=== PATIENT | female | born 1975 | race Caucasian/White ===

== ENCOUNTER 2017-02-28 09:54 | Inpatient (IN) | payer OTHER ==
[2017-02-28 10:34] VITALS: BMI 28.3
--- NOTE | 2017-02-28 12:20 | HP ---
COWS - Scale Resting Pulse: 0= [place] 80 or Below Sweatin=Flushed/Facial Moisture Restless Observation: 1= Difficult to Sit Still Pupil Size: 2= Moderately Dilated Bone or Joint Aches: 2= Severe Diffuse Aches Runny Nose/ Eye Tearin= Runny Nose/Eyes GI Upset > 30mins: 2= Nausea/Diarrhea Tremor Observation: 2= Slight Tremor Visible Yawning Observation: 1= 1-2x During Session Anxiety or Irritability: 2=Irritable/Anxious Goose Flesh Skin: 0=Smooth Skin COWS Score: 16 Admission ROS S - HPI Chief Complaint: Withdrawal sx. Allergies/Adverse Reactions: Allergies Allergy/AdvReac Type Severity Reaction Status Date / Time No Known Allergies Allergy Verified 02/28/17 10:55 History of Present Illness: 41 y/o woman with a long hx. of drug dependence is admitted for detox.Pt. denies previous detox. Exam Limitations: No Limitations - Ebola screening Have you traveled outside of the country in the last 21 days: No Have you had contact with anyone from an Ebola affected area: No Have you been sick,other than usual withdrawal symptoms: No - Review of Systems Constitutional: Diaphoresis EENT: reports: Nose Congestion Respiratory: reports: No Symptoms reported Cardiac: reports: No Symptoms Reported GI: reports: Diarrhea, Nausea, Abdominal cramping : reports: No Symptoms Reported Musculoskeletal: reports: Back Pain Integumentary: reports: Sweating Neuro: reports: Tremors Endocrine: reports: No Symptoms Reported Hematology: reports: No Symptoms Reported Psychiatric: reports: No Sypmtoms Reported Other Systems: Reviewed and Negative Patient History - Patient Medical History Hx Anemia: No Hx Asthma: No Hx Chronic Obstructive Pulmonary Disease (COPD): No Hx Cardiac Disorders: No Hx Hypertension: No Hx Hypercholesterolemia: No Hx Pacemaker: No HX Cerebrovascular Accident: No Hx Seizures: No Hx Diabetes: No Hx Gastrointestinal Disorders: No Hx Liver Disease: No Hx Genitourinary Disorders: No Hx Sexually Transmitted Disorders: No Hx Renal Disease (ESRD): No Hx Thyroid Disease: No Hx Human Immunodeficiency Virus (HIV): No Hx Hepatitis C: No Hx Depression: Yes (& anxiety,prescribed Abilify(non-compliant)) Hx Suicide Attempt: No Hx Bipolar Disorder: No Hx Schizophrenia: No - Patient Surgical History Past Surgical History: No Hx Neurologic Surgery: No Hx Cataract Extraction: No Hx Cardiac Surgery: No Hx Lung Surgery: No Hx Breast Surgery: No Hx Breast Biopsy: No Hx Abdominal Surgery: No Hx Appendectomy: No Hx Cholecystectomy: No Hx Genitourinary Surgery: No Hx Section: No Hx Orthopedic Surgery: No Anesthesia Reaction: No - PPD History Previous Implant?: Yes Documented Results: Negative w/o proof Implanted On Prior [facility] Admission?: No PPD to be Administered?: Yes - Reproductive History Last Menstrual Period: 02/21/17 Patient : No - Smoking Cessation Smoking history: Current every day smoker Have you smoked in the past 12 months: Yes Aproximately how many cigarettes per day: 20 Hx Chewing Tobacco Use: No Initiated information on smoking cessation: Yes 'Breaking Loose' booklet given: 02/28/17 - Substance & Tx. History Hx Alcohol Use: No Hx Substance Use: Yes Substance Use Type: Cocaine, Heroin, Marijuana Hx Substance Use Treatment: No - Substances Abused Heroin Route: Inhalation Frequency: Daily Amount used: 8-9 bags Age of first use: 37 Date of Last Use: 02/27/17 Crack Route: Smoking Frequency: Daily Amount used: $300 Age of first use: 13 Date of Last Use: 02/27/17 Marijuana Route: Smoking Frequency: Daily Amount used: $10 Age of first use: 13 Date of Last Use: 02/27/17 Family Disease History - Family Disease History Family Disease History: CA: Mother (Colon) Admission Physical Exam [facility] - Vital Signs Vital Signs: Vital Signs - 24 hr 02/28/17 10:32 Temperature 96.9 F L Pulse Rate 67 Respiratory 20 Rate Blood Pressure 113/77 - Physical General Appearance: Yes: Tremorous, Irritable, Sweating, Anxious HEENTM: Yes: Nasal Congestion, Rhinorrhea Respiratory: Yes: Chest Non-Tender, Lungs Clear, Normal Breath Sounds Neck: Yes: Supple Breast: Yes: Breast Exam Deferred Cardiology: Yes: Regular Rhythm, Regular Rate, S1, S2 Abdominal: Yes: Normal Bowel Sounds, Non Tender, Soft Genitourinary: Yes: Within Normal Limits Back: Yes: Within Normal Limits Musculoskeletal: Yes: Within Normal Limits Extremities: Yes: Tremors Neurological: Yes: Fully Oriented, Alert Integumentary: Yes: Diaphoresis Lymphatic: Yes: Within Normal Limits - Diagnostic (1) Opioid dependence with withdrawal Current Visit: Yes Status: Acute (2) Cocaine dependence, uncomplicated Current Visit: Yes Status: Acute (3) Cannabis dependence, uncomplicated Current Visit: Yes Status: Acute Cleared for Admission [facility] - Detox or Rehab [facility] Level of Care: Medically Managed Detox Regimen/Protocol: Methadone [facility] Breath Alcohol Content Breath Alcohol Content: 0 Urine Pregancy Test - Result Urine Test Results: Negative- NO Line Present Urine Drug Screen - Results Drug Screen Negative: No Urine Drug Screen Results: THC-Marijuana, MARLEN-Cocaine, OPI-Opiates
[2017-02-28] MEDS ORDERED: diphenhydrAMINE HCL 50 MG CAPSULE PO PRN (12:29)
[2017-02-28] MEDS ORDERED: MAGNESIUM CITRATE 300 ML BOTTLE PO PRN (12:29)
[2017-02-28] MEDS ORDERED: MAG HYDROX/AL HYDROX/SIMETH 30 ML UNIT-DOSE CUP PO PRN (12:29)
[2017-02-28] MEDS ORDERED: guaiFENesin/D-METHORPHAN HB 10 ML UNIT-DOSE CUPS PO PRN (12:29)
[2017-02-28] MEDS ORDERED: P-EPHED 60MG/TRIPROLIDI 2.5MG TABLET PO PRN (12:29)
[2017-02-28] MEDS ORDERED: LOPERAMIDE HCL 2 MG CAPSULE PO PRN (12:29)
[2017-02-28] MEDS ORDERED: ACETAMINOPHEN 325 MG TABLET (FP) PO PRN (12:29)
[2017-02-28] MEDS ORDERED: MAGNESIUM HYDROX 2400MG/30ML ORAL SUSPENSION 30 ML CUP PO PRN (12:29)
[2017-02-28] MEDS ORDERED: METHADONE HCL 10 MG TABLET (FOR DETOX USE ONLY) PO ONE ×2 (12:56→23:00)
[2017-02-28] MEDS: NICOTINE 21 MG/24 HOURS TOPICAL PATCH TD SCH (13:18)
[2017-02-28] MEDS: diazePAM 5 MG TABLET PO PRN ×2 (13:18→23:01)
--- NOTE | 2017-02-28 15:05 | EKG ---
Test Reason : Blood Pressure : / mmHG Vent. Rate : 065 BPM Atrial Rate : 065 BPM P-R Int : 146 ms QRS Dur : 096 ms QT Int : 442 ms P-R-T Axes : 032 066 055 degrees QTc Int : 459 ms NORMAL SINUS RHYTHM NORMAL ECG NO PREVIOUS ECGS AVAILABLE Confirmed by CHEMO AVILA MD ([id number]) on 02/28/2017 3:05:28 PM Referred By: Confirmed By:CHEMO AVILA MD
[2017-02-28 15:30] LABS: HIV 1 & 2 AB NEGATIVE; HIV 1 AGp24 NEGATIVE
[2017-02-28 18:54] LABS: URINE APPEARANCE CLOUDY; URINE BILIRUBIN NEGATIVE (NEGATIVE); URINE BLOOD NEGATIVE (NEGATIVE); URINE COLOR DKYELLOW; URINE GLUCOSE (UA) NEGATIVE (NEGATIVE); URINE KETONE NEGATIVE (NEGATIVE); URINE NITRITE NEGATIVE (NEGATIVE); URINE UROBILINOGEN 2.0 E.U/dl E.U./dl (0.2-1.0)
[2017-02-28 19:05] LABS: URINE LEUK ESTERASE TRACE (NEGATIVE); URINE PROTEIN 1+ (NEGATIVE)
[2017-02-28 19:14] LABS: URINE BACTERIA RARE /hpf (NONE SEEN); URINE MUCUS MANY; URINE RBC 19 /hpf (0-3); URINE WBC 20 /hpf (3-5)
[2017-02-28] MEDS: THIAMINE HCL 100 MG TABLET (FP) PO SCH (23:02)
--- NOTE | 2017-03-01 09:51 | CONSULT ---
[facility] Psychiatric Consult - Data Date of interview: 03/01/17 Admission source: [facility] Identifying data: This is 41 years old female with psychiatiorc hospitalization history intoxicated with: Opioids, Cocaine and Cannabis Substance Abuse History: - Smoking Cessation. Smoking history: Current every day smoker. Have you smoked in the past 12 months: Yes. Aproximately how many cigarettes per day: 20. Hx Chewing Tobacco Use: No. Initiated information on smoking cessation: Yes. 'Breaking Loose' booklet given: 02/28/17. - Substance & Tx. History. Hx Alcohol Use: No. Hx Substance Use: Yes. Substance Use Type : Cocaine, Heroin, Marijuana. Hx Substance Use Treatment: No. - Substances Abused. Heroin. Route: Inhalation. Frequency: Daily. Amount used: 8-9 bags. Age of first use: 37. Date of Last Use: 02/27/17. Crack. Route: Smoking. Frequency: Daily. Amount used: $300. Age of first use: 13. Date of Last Use: 02/27/17. Marijuana. Route: Smoking. Frequency: Daily. Amount used: $10. Age of first use: 13. Date of Last Use: 02/27/17 Medical History: Denies significant medical problem Psychiatric History: Patient reports historyof anxiety and insomnia, reports unclear past psychiatric hospitalization history, reports taking priorto admission: 'Ambien 10mg po qhs. [id number] po prn q4 for anxiety and agitation Physical/Sexual Abuse/Trauma History: Denies Additional Comment: 'Ambien 10mg po qhs. [id number] po prn q4 for anxiety and agitation Mental Status Exam - Mental Status Exam Alert and Oriented to: Person Cognitive Function: Fair Patient Appearance: Unkempt Mood: Sad Affect: Flat Patient Behavior: Sedated, Talkative Speech Pattern: Delayed Voice Loudness: Normal Thought Process: Circumstantial Thought Disorder: Being Controlled Hallucinations: Denies Suicidal Ideation: Denies Homicidal Ideation: Denies Insight/Judgement: Fair Sleep: Difficulty falling asleep Appetite: Fair Muscle strength/Tone: Mild Hypotonicity Gait/Station: Shuffling Additional Comments: 'Ambien 10mg po qhs. [id number] po prn q4 for anxiety and agitation Psychiatric Findings - Problem List ([place] 1, 2,3) (1) Cannabis dependence, uncomplicated Current Visit: Yes Status: Acute (2) Cocaine dependence, uncomplicated Current Visit: Yes Status: Acute (3) Opioid dependence with withdrawal Current Visit: Yes Status: Acute (4) Drug-induced mood disorder Current Visit: Yes Status: Acute - Initial Treatment Plan Initial Treatment Plan: 'Ambien 10mg po qhs. [id number] po prn q4 for anxiety and agitation
[2017-03-01] MEDS ORDERED: METHADONE HCL 10 MG TABLET (FOR DETOX USE ONLY) PO ONE (10:00)
[2017-03-01 10:15] LABS: MCH 30.6 pg (25.7-33.7); MCHC 33.2 g/dl (32.0-36.0); MEAN CELL VOLUME 92.3 fl (80-96); MEAN PLT VOLUME 10.1 fl (7.5-11.1); PLATELET COUNT 291 K/MM3 (134-434); RDW 13.6 % (11.6-15.6); WHITE BLOOD COUNT 7.4 K/mm3 (4.0-10.0)
[2017-03-01 10:49] LABS: ALBUMIN 3.7 g/dl (3.4-5.0); ALK PHOS 82 U/L (45-117); ANION GAP 13 (8-16); BILIRUBIN,TOTAL 0.3 mg/dL (0.2-1.0); CALCIUM 8.7 mg/dL (8.5-10.1); CO2 25 mmol/L (21-32); COCKROFT - GAULT 108.2305; CREATININE 0.8 mg/dL (0.55-1.02); GLUCOSE,RANDOM 130 mg/dL (74-106); SGOT/AST 19 U/L (15-37); SGPT/ALT 24 U/L (12-78); TOT PROT 6.9 g/dl (6.4-8.2)
[2017-03-01] MEDS: PRENATAL VITAMINS W/ FOLIC ACID TABLET (FP) PO SCH (10:56)
[2017-03-01] MEDS: NICOTINE 21 MG/24 HOURS TOPICAL PATCH TD SCH (10:56)
[2017-03-01] MEDS: diazePAM 5 MG TABLET PO PRN ×2 (10:57→22:29)
[2017-03-01 11:25] LABS: SICKLE CELL SCREEN NEGATIVE (NEGATIVE)
[2017-03-01] MEDS ORDERED: cloNIDine HCL 0.1 MG TABLET PO ONE (11:31)
--- NOTE | 2017-03-01 11:35 | PN ---
S COWS - Scale Resting Pulse: 0= [place] 80 or Below Sweatin=Flushed/Facial Moisture Restless Observation: 1= Difficult to Sit Still Pupil Size: 0= Normal to Room Light Bone or Joint Aches: 2= Severe Diffuse Aches Runny Nose/ Eye Tearin= Runny Nose/Eyes GI Upset > 30mins: 2= Nausea/Diarrhea Tremor Observation of Outstretched Hands: 2= Slight Tremor Visible Yawning Observation: 2= >3x During Session Anxiety or Irritability: 2=Irritable/Anxious Goose Flesh Skin: 3=Piloerection COWS Score: 18 S Progress Note (SOAP) Subjective: body aches sweats hot/cold chills restless irritable Objective: 03/01/17 11:34 Vital Signs Temperature 97.3 F L 03/01/17 06:00 Pulse Rate 61 03/01/17 06:00 Respiratory Rate 18 03/01/17 06:00 Blood Pressure 119/82 03/01/17 06:00 O2 Sat by Pulse Oximetry (%) Laboratory Tests 02/28/17 02/28/17 03/01/17 11:00 15:00 06:00 WBC 7.4 RBC 4.76 Hgb 14.6 Hct 43.9 MCV 92.3 MCHC 33.2 RDW 13.6 Plt Count 291 MPV 10.1 Sickle Cell Screen Negative Sodium Potassium Chloride Carbon Dioxide Anion Gap BUN Creatinine Creat Clearance w eGFR Random Glucose Calcium Total Bilirubin AST ALT Alkaline Phosphatase Total Protein Albumin Urine Color Dkyellow Urine Appearance Cloudy Urine pH 6.0 Ur Specific [place] 1.025 Urine Protein 1+ H Urine Glucose (UA) Negative Urine Ketones Negative Urine Blood Negative Urine Nitrite Negative Urine Bilirubin Negative Urine Urobilinogen 2.0 e.u/dl H Ur Leukocyte Esterase Trace H Urine RBC 19 Urine WBC 20 Ur Epithelial Cells Rare Urine Bacteria Rare Urine Mucus Many HIV 1&2 Antibody Screen Negative HIV P24 Antigen Negative 03/01/17 06:00 WBC RBC Hgb Hct MCV MCHC RDW Plt Count MPV Sickle Cell Screen Sodium 143 Potassium 3.6 Chloride 105 Carbon Dioxide 25 Anion Gap 13 BUN 8 Creatinine 0.8 Creat Clearance w eGFR > 60 Random Glucose 130 H Calcium 8.7 Total Bilirubin 0.3 AST 19 ALT 24 Alkaline Phosphatase 82 Total Protein 6.9 Albumin 3.7 Urine Color Urine Appearance Urine pH Ur Specific [place] Urine Protein Urine Glucose (UA) Urine Ketones Urine Blood Urine Nitrite Urine Bilirubin Urine Urobilinogen Ur Leukocyte Esterase Urine RBC Urine WBC Ur Epithelial Cells Urine Bacteria Urine Mucus HIV 1&2 Antibody Screen HIV P24 Antigen repeat u/a awake/alert ambulating no acute distress Assessment: 03/01/17 11:34 withdrawal sx Plan: continue detox increase fluids clonidine 0.1mg x one
[2017-03-01] MEDS: NICOTINE POLACRILEX 2 MG GUM BUC PRN (16:53)
[2017-03-01] MEDS: ZOLPIDEM TARTRATE 10 MG TABLET (PARK CARE ONLY) PO PRN (22:29)
[2017-03-01] MEDS: THIAMINE HCL 100 MG TABLET (FP) PO SCH (22:29)
[2017-03-02] MEDS ORDERED: METHADONE HCL 5 MG TABLET (FOR DETOX USE ONLY) PO ONE (10:00)
[2017-03-02] MEDS: PRENATAL VITAMINS W/ FOLIC ACID TABLET (FP) PO SCH (10:48)
[2017-03-02] MEDS: diazePAM 5 MG TABLET PO PRN ×2 (10:48→22:55)
[2017-03-02] MEDS: NICOTINE 21 MG/24 HOURS TOPICAL PATCH TD SCH (10:49)
--- NOTE | 2017-03-02 11:28 | PN ---
S COWS - Scale Resting Pulse: 0= [place] 80 or Below Sweatin=Flushed/Facial Moisture Restless Observation: 1= Difficult to Sit Still Pupil Size: 0= Normal to Room Light Bone or Joint Aches: 2= Severe Diffuse Aches Runny Nose/ Eye Tearin= Nasal Congestion GI Upset > 30mins: 0= None Tremor Observation of Outstretched Hands: 2= Slight Tremor Visible Yawning Observation: 1= 1-2x During Session Anxiety or Irritability: 2=Irritable/Anxious Goose Flesh Skin: 3=Piloerection COWS Score: 14 S Progress Note (SOAP) Subjective: body aches shakes sweats hot/cold interrupted sleep Objective: 03/02/17 11:24 Vital Signs Temperature 98.2 F 03/02/17 10:40 Pulse Rate 61 03/02/17 10:40 Respiratory Rate 16 03/02/17 10:40 Blood Pressure 124/79 03/02/17 10:40 O2 Sat by Pulse Oximetry (%) Laboratory Tests 02/28/17 02/28/17 03/01/17 11:00 15:00 06:00 WBC 7.4 RBC 4.76 Hgb 14.6 Hct 43.9 MCV 92.3 MCHC 33.2 RDW 13.6 Plt Count 291 MPV 10.1 Sickle Cell Screen Negative Sodium Potassium Chloride Carbon Dioxide Anion Gap BUN Creatinine Creat Clearance w eGFR Random Glucose Calcium Total Bilirubin AST ALT Alkaline Phosphatase Total Protein Albumin Urine Color Dkyellow Urine Appearance Cloudy Urine pH 6.0 Ur Specific [place] 1.025 Urine Protein 1+ H Urine Glucose (UA) Negative Urine Ketones Negative Urine Blood Negative Urine Nitrite Negative Urine Bilirubin Negative Urine Urobilinogen 2.0 e.u/dl H Ur Leukocyte Esterase Trace H Urine RBC 19 Urine WBC 20 Ur Epithelial Cells Rare Urine Bacteria Rare Urine Mucus Many RPR Titer HIV 1&2 Antibody Screen Negative HIV P24 Antigen Negative 03/01/17 03/01/17 06:00 06:00 WBC RBC Hgb Hct MCV MCHC RDW Plt Count MPV Sickle Cell Screen Sodium 143 Potassium 3.6 Chloride 105 Carbon Dioxide 25 Anion Gap 13 BUN 8 Creatinine 0.8 Creat Clearance w eGFR > 60 Random Glucose 130 H Calcium 8.7 Total Bilirubin 0.3 AST 19 ALT 24 Alkaline Phosphatase 82 Total Protein 6.9 Albumin 3.7 Urine Color Urine Appearance Urine pH Ur Specific [place] Urine Protein Urine Glucose (UA) Urine Ketones Urine Blood Urine Nitrite Urine Bilirubin Urine Urobilinogen Ur Leukocyte Esterase Urine RBC Urine WBC Ur Epithelial Cells Urine Bacteria Urine Mucus RPR Titer Nonreactive HIV 1&2 Antibody Screen HIV P24 Antigen awake/alert ambulating no acute distress Assessment: 03/02/17 11:25 withdrawal sx Plan: continue detox increase fluids psych reordered for medication she takes
[2017-03-02] MEDS ORDERED: QUEtiapine FUMARATE 100 MG TABLET (FP) PO STA (11:30)
[2017-03-02] MEDS: QUEtiapine FUMARATE 100 MG TABLET (FP) PO SCH ×2 (12:05→22:54)
[2017-03-02] MEDS: NICOTINE POLACRILEX 2 MG GUM BUC PRN ×2 (12:05→23:01)
[2017-03-02] MEDS: ZOLPIDEM TARTRATE 10 MG TABLET (PARK CARE ONLY) PO PRN (22:53)
[2017-03-02] MEDS: MIRTAZAPINE 30 MG TABLET (FP) PO SCH (22:53)
[2017-03-02] MEDS: THIAMINE HCL 100 MG TABLET (FP) PO SCH (22:54)
[2017-03-03] MEDS ORDERED: METHADONE HCL 5 MG TABLET (FOR DETOX USE ONLY) PO ONE (10:00)
[2017-03-03] MEDS: PRENATAL VITAMINS W/ FOLIC ACID TABLET (FP) PO SCH (10:42)
[2017-03-03] MEDS: QUEtiapine FUMARATE 100 MG TABLET (FP) PO SCH ×2 (10:42→22:52)
[2017-03-03] MEDS: NICOTINE 21 MG/24 HOURS TOPICAL PATCH TD SCH (10:43)
--- NOTE | 2017-03-03 11:02 | PN ---
[facility] Progress Note (SOAP) Subjective: chills hot/cold sweats interrupted sleep body aches Objective: 03/03/17 11:01 Vital Signs Temperature 96.8 F L 03/03/17 06:00 Pulse Rate 56 L 03/03/17 06:00 Respiratory Rate 18 03/03/17 06:00 Blood Pressure 112/55 03/03/17 06:00 O2 Sat by Pulse Oximetry (%) awake/alert ambulating no acute distress Assessment: 03/03/17 11:02 withdrawal sx Plan: continue detox increase fluids
[2017-03-03] MEDS: IBUPROFEN 400 MG TABLET (FP) PO PRN ×2 (13:05→19:01)
[2017-03-03] MEDS: NICOTINE POLACRILEX 2 MG GUM BUC PRN (13:07)
[2017-03-03] MEDS: MENTHOL/PHENOL 1 EACH UD MM PRN ×2 (19:02→22:53)
[2017-03-03] MEDS: hydrOXYzine PAMOATE 50 MG CAPSULE (FP) PO PRN (19:03)
[2017-03-03] MEDS: ZOLPIDEM TARTRATE 10 MG TABLET (PARK CARE ONLY) PO PRN (22:51)
[2017-03-03] MEDS: THIAMINE HCL 100 MG TABLET (FP) PO SCH (22:52)
[2017-03-03] MEDS: MIRTAZAPINE 30 MG TABLET (FP) PO SCH (22:52)
[2017-03-04] MEDS ORDERED: METHADONE HCL 10 MG TABLET (FOR DETOX USE ONLY) PO ONE (10:00)
[2017-03-04] MEDS: PRENATAL VITAMINS W/ FOLIC ACID TABLET (FP) PO SCH (11:34)
[2017-03-04] MEDS: hydrOXYzine PAMOATE 50 MG CAPSULE (FP) PO PRN ×2 (11:34→18:47)
[2017-03-04] MEDS: QUEtiapine FUMARATE 100 MG TABLET (FP) PO SCH ×2 (11:34→22:33)
[2017-03-04] MEDS: NICOTINE POLACRILEX 2 MG GUM BUC PRN ×3 (11:35→22:37)
[2017-03-04] MEDS: NICOTINE 21 MG/24 HOURS TOPICAL PATCH TD SCH (11:35)
--- NOTE | 2017-03-04 15:55 | PN ---
S Progress Note (SOAP) Subjective: ALERT,IRRITABLE,ANXIOUS,INTERRUPTED SLEEP Objective: 03/04/17 15:54 Vital Signs Temperature 97.9 F 03/04/17 14:46 Pulse Rate 88 03/04/17 14:46 Respiratory Rate 16 03/04/17 14:46 Blood Pressure 112/66 03/04/17 14:46 O2 Sat by Pulse Oximetry (%) Assessment: 03/04/17 15:54 WITHDRAWAL SYMPTOM Plan: CONTINUE DETOX,DISCHARGE IN AM
[2017-03-04] MEDS: IBUPROFEN 400 MG TABLET (FP) PO PRN (18:47)
[2017-03-04] MEDS: MIRTAZAPINE 30 MG TABLET (FP) PO SCH (22:33)
[2017-03-04] MEDS: THIAMINE HCL 100 MG TABLET (FP) PO SCH (22:34)
[2017-03-04] MEDS: ZOLPIDEM TARTRATE 10 MG TABLET (PARK CARE ONLY) PO PRN (22:37)
[2017-03-04] MEDS: MENTHOL/PHENOL 1 EACH UD MM PRN (22:37)
[2017-03-05] MEDS ORDERED: METHADONE HCL 5 MG TABLET (FOR DETOX USE ONLY) PO ONE (06:00)
[2017-03-05] MEDS: IBUPROFEN 400 MG TABLET (FP) PO PRN (06:18)
[2017-03-05] MEDS: hydrOXYzine PAMOATE 50 MG CAPSULE (FP) PO PRN (06:18)
[2017-03-05] MEDS: NICOTINE POLACRILEX 2 MG GUM BUC PRN (06:18)
[2017-03-05 07:17] VITALS: BP 95/48; PULSE 57; TEMP 97.6
--- NOTE | 2017-03-05 09:07 | PN ---
S Progress Note (SOAP) Subjective: ALERT,NO COMPLAINT Objective: 03/05/17 09:06 Vital Signs Temperature 97.6 F 03/05/17 07:16 Pulse Rate 57 L 03/05/17 07:16 Respiratory Rate 16 03/05/17 07:16 Blood Pressure 95/48 03/05/17 07:16 O2 Sat by Pulse Oximetry (%) Assessment: 03/05/17 09:06 DETOX COMPLETED,NO WITHDRAWAL SYMPTOM Plan: DISCHARGE TODAY,FOLLOW UP WITH AFTER CARE PROGRAM ARRANGEMENT
--- NOTE | 2017-03-05 09:09 | DS ---
[facility] Detox Discharge Summary Admission Date: 02/28/17 Discharge Date: 03/05/17 - History Present History: Cannabis Dependence, Cocaine Dependence, Opioid Dependence Additional Comments: FOLLOW UP WITH AFTER CARE PROGRAM ARRANGEMENT - Physical Exam Results Vital Signs: Vital Signs Temperature 97.6 F 03/05/17 07:16 Pulse Rate 57 L 03/05/17 07:16 Respiratory Rate 16 03/05/17 07:16 Blood Pressure 95/48 03/05/17 07:16 O2 Sat by Pulse Oximetry (%) Pertinent Admission Physical Exam Findings: WITHDRAWAL SYMPTOM - Treatment Hospital Course: Detox Protocol Followed, Detoxed Safely, Responded well, Discharged Condition Good Patient has Accepted a Rehab Referral to: DECL[facility]ED - Medication Discharge Medications: Ambulatory Orders Mirtazapine [Remeron -] 30 mg PO HS #30 tablet 03/02/17 Quetiapine Fumarate [Seroquel] 100 mg PO BID #60 tablet 03/02/17 Quetiapine Fumarate [Seroquel] 100 mg PO BID #60 tablet 03/02/17 - Diagnosis (1) Cannabis dependence, uncomplicated Current Visit: Yes Status: Acute (2) Cocaine dependence, uncomplicated Current Visit: Yes Status: Acute (3) Drug-induced mood disorder Current Visit: Yes Status: Acute (4) Opioid dependence with withdrawal Current Visit: Yes Status: Acute - AMA Did Patient Leave Against Medical Advice: No
[2017-03-05] MEDS: QUEtiapine FUMARATE 100 MG TABLET (FP) PO SCH (09:34)
[2017-03-05] MEDS: PRENATAL VITAMINS W/ FOLIC ACID TABLET (FP) PO SCH (09:34)
[2017-03-05] MEDS: NICOTINE 21 MG/24 HOURS TOPICAL PATCH TD SCH (09:34)
== END 2017-03-05 10:12 | disposition home or self-care (01) | DRG 773 ==
LOC: YASAS 09:54 → Y6N 12:49
PROVIDERS: ADMIT Internal Medicine Addiction Medicine; ATTEND Internal Medicine Addiction Medicine
PROC: HZ2ZZZZ Detoxification Services for Substance Abuse Treatment (ICD-10-PCS; principal; 2017-03-05)
DX: F11.23 Opioid dependence with withdrawal (principal); F14.20 Cocaine dependence, uncomplicated; F12.20 Cannabis dependence, uncomplicated; F17.210 Nicotine dependence, cigarettes, uncomplicated; F32.9 Major depressive disorder, single episode, unspecified; F41.9 Anxiety disorder, unspecified; F19.24 Other psychoactive substance dependence with psychoactive substance-induced mood disorder
CPT/HCPCS: 36415; 80053; 81003; 81015; 85027; 85660; 86593; 87389; 93005; 93010

== ENCOUNTER 2019-12-02 13:21 | Inpatient (IN) | payer OTHER ==
--- NOTE | 2019-12-02 14:48 | HP ---
COWS - Scale Resting Pulse: 0= [place] 80 or Below Sweatin= Chills/Flushing Restless Observation: 1= Difficult to Sit Still Pupil Size: 0= Normal to Room Light Bone or Joint Aches: 2= Severe Diffuse Aches Runny Nose/ Eye Tearin= Runny Nose/Eyes GI Upset > 30mins: 2= Nausea/Diarrhea Tremor Observation: 1= Tremor [place], Not Seen Yawning Observation: 0= None Anxiety or Irritability: 2=Irritable/Anxious Goose Flesh Skin: 0=Smooth Skin COWS Score: 11 CIWA Score - Admission Criteria [facility] Guidelines: Admission for Medically Managed Detox: Requires at least one of the followin. CIWA greater than 12 2. Seizures within the past 24 hours 3. Delirium tremens within the past 24 hours 4. Hallucinations within the past 24 hours 5. Acute intervention needed for co occurring medical disorder 6. Acute intervention needed for co occurring psychiatric disorder 7. Severe withdrawal that cannot be handled at a lower level of care (continued vomiting, continued diarrhea, abnormal vital signs) requiring intravenous medication and/or fluids 8. Admitting History and Physical - Admission Chief Complaint: Ms. Ayala presents to [facility] requesting admission to detox from Fentanyl and Heroin. History of Present Illness: Ms. Ayala presents to [facility] requesting admission to detox from Fentanyl and Heroin. She is a 44 yo woman with 2 prior admissions to this facility, the last was in 2018. PMH: none Psych: anxiety/depression, on Klonopin (street), was on Ambien Substance use History Heroin: first use at age 39 y, last use: this am, quantity: 1.5 bundles per day. IV. 3 ODs, last OD ~ 5 mos ago, tx in [facility] Cocaine: first use at age 11 y, last use 3 days ago, one bag daily Marijuana: first use at age 11 y, last use 4 days ago, 10 blunts per day Benzodiazepines: first use at age 42 y, last use yesterday, $40. per day. Klonopin Nicotine: 1.5 ppd Denies: no alcohol, no methadone History Source: Patient Limitations to Obtaining History: No Limitations - Past Medical History ...LMP: 02/21/17 Psych: Yes: Anxiety, Depression - Past Surgical History Additional Past Surgical History: Hemorrhoids - Smoking History Smoking history: Current every day smoker Have you smoked in the past 12 months: Yes Aproximately how many cigarettes per day: 30 - Alcohol/Substance Use Hx Alcohol Use: Yes History of Substance Use: reports: Cocaine, Heroin, Marijuana, Tranquilizers - Social History Usual Living Arrangement: Yes: Other (friend) History of Recent Travel: No Admission ROS [facility] - [facility] Allergies/Adverse Reactions: Allergies Allergy/AdvReac Type Severity Reaction Status Date / Time No Known Allergies Allergy Verified 12/18/17 18:27 Exam Limitations: No Limitations - Ebola screening Have you traveled outside of the country in the last 21 days: No Have you had contact with anyone from an Ebola affected area: No Have you been sick,other than usual withdrawal symptoms: No Do you have a fever: No - Review of Systems Constitutional: No Symptoms Reported, Fever, Unintentional Wgt. Loss (7 lbs loss in 4 weeks) EENT: reports: No Symptoms Reported Respiratory: reports: Cough Cardiac: reports: No Symptoms Reported GI: reports: Diarrhea : reports: No Symptoms Reported Musculoskeletal: reports: Back Pain, Joint Pain Integumentary: reports: Dryness Neuro: reports: Headache, Numbness Endocrine: reports: No Symptoms Reported Hematology: reports: No Symptoms Reported Psychiatric: reports: Anxious, Depressed Patient History - Patient Medical History Hx Anemia: No Hx Asthma: No Hx Chronic Obstructive Pulmonary Disease (COPD): No Hx Cancer: No Hx Cardiac Disorders: No Hx Congestive Heart Failure: No Hx Hypertension: No Hx Hypercholesterolemia: No Hx Pacemaker: No HX Cerebrovascular Accident: No Hx Seizures: No Hx Dementia: No Hx Diabetes: No Hx Gastrointestinal Disorders: No Hx Liver Disease: No Hx Genitourinary Disorders: No Hx Sexually Transmitted Disorders: No Hx Renal Disease (ESRD): No Hx Thyroid Disease: No Hx Human Immunodeficiency Virus (HIV): No (4 weeks ago at [facility], negative) Hx Hepatitis C: No Hx Depression: Yes (& anxiety,prescribed Abilify(non-compliant)) Hx Suicide Attempt: No Hx Bipolar Disorder: No Hx Schizophrenia: No - Patient Surgical History Past Surgical History: No Hx Neurologic Surgery: No Hx Cataract Extraction: No Hx Cardiac Surgery: No Hx Lung Surgery: No Hx Breast Surgery: No Hx Breast Biopsy: No Hx Abdominal Surgery: No Hx Appendectomy: No Hx Cholecystectomy: No Hx Genitourinary Surgery: No Hx Section: No Hx Orthopedic Surgery: No Other Surgical History: Hemorrhoids Anesthesia Reaction: No - PPD History Date: 03/02/17 PPD to be Administered?: Yes - Reproductive History Patient is a Female of Child Bearing Age (11 -55 yrs old): Yes Last Menstrual Period: 10/22/19 - Smoking Cessation Smoking history: Current every day smoker Have you smoked in the past 12 months: Yes Aproximately how many cigarettes per day: 20 Hx Chewing Tobacco Use: No Initiated information on smoking cessation: Yes 'Breaking Loose' booklet given: 12/02/19 - Substance & Tx. History Substance Use Type: Cocaine, Heroin, Marijuana, Tranquilizers - Substances abused Heroin Substance route: Injection Frequency: Daily Amount used: 1.5 bundles Age of first use: 39 Date of last use: 12/02/19 Cocaine Frequency: Daily Amount used: $40 Age of first use: 11 Date of last use: 11/30/19 Marijuana/Hashish Frequency: Daily Amount used: 4 blunts Age of first use: 11 Date of last use: 11/27/19 Benzodiazepine (Klonopin) Substance route: Oral Amount used: $40 per day Age of first use: 19 Date of last use: 12/01/19 Admission Physical Exam [facility] - Physical General Appearance: Yes: No Apparent Distress HEENTM: Yes: EOMI, Hearing grossly Normal, Normocephalic, Normal Voice Respiratory: Yes: Lungs Clear, Normal Breath Sounds Neck: Yes: Within Normal Limits Breast: Yes: Breast Exam Deferred Cardiology: Yes: Regular Rate, S1, S2 Abdominal: Yes: Normal Bowel Sounds, Non Tender, Flat Genitourinary: Yes: Other (deferred) Back: Yes: Normal Inspection Musculoskeletal: Yes: Within Normal Limits Extremities: Yes: Within Normal Limits Neurological: Yes: Alert Integumentary: Yes: Track Ricks - Diagnostic (1) Benzodiazepine abuse Current Visit: Yes Status: Acute (2) Cannabis dependence, uncomplicated Current Visit: Yes Status: Chronic (3) Cocaine dependence, uncomplicated Current Visit: Yes Status: Acute (4) Opioid dependence with withdrawal Current Visit: Yes Status: Acute Cleared for Admission S - Detox or Rehab [facility] Level of Care: Medically Managed Inpatient Rehab Admission - Rehab Decision to Admit Inpatient rehab admission?: No
[2019-12-02] MEDS ORDERED: MAGNESIUM CITRATE 300 ML BOTTLE PO PRN (15:00)
[2019-12-02] MEDS ORDERED: ACETAMINOPHEN 325 MG TABLET (FP) PO PRN ×2 (15:00)
[2019-12-02] MEDS ORDERED: BISMUTH SUBSALICYLATE 262 MG/15 ML BTL PO PRN (15:00)
[2019-12-02] MEDS ORDERED: MAGNESIUM HYDROX 2400MG/30ML ORAL SUSPENSION 30 ML CUP PO PRN (15:00)
[2019-12-02] MEDS ORDERED: MAG HYDROX/AL HYDROX/SIMETH 30 ML UNIT-DOSE CUP PO PRN (15:00)
[2019-12-02] MEDS ORDERED: MENTHOL/PHENOL 1 EACH UD MM PRN (15:00)
[2019-12-02] MEDS ORDERED: cloNIDine HCL 0.1 MG TABLET PO PRN (15:00)
[2019-12-02] MEDS ORDERED: MELATONIN 5 MG TABLETS PO PRN (15:00)
[2019-12-02 15:43] VITALS: BMI 25.7
[2019-12-02] MEDS ORDERED: METHADONE HCL 10 MG TABLET (FOR DETOX USE ONLY) PO ONE (16:30)
[2019-12-02] MEDS: hydrOXYzine PAMOATE 25 MG CAPSULE (FP) PO PRN ×2 (16:58→22:38)
[2019-12-02] MEDS: NICOTINE 21 MG/24 HOURS TOPICAL PATCH TD SCH (17:01)
[2019-12-02 17:28] LABS: HEMATOCRIT 43.2 % (32.4-45.2); MCH 32.1 pg (25.7-33.7); MCHC 34.8 g/dl (32.0-36.0); MEAN CELL VOLUME 92.3 fl (80-96); MEAN PLT VOLUME 8.5 fl (7.5-11.1); PLATELET COUNT 218 K/MM3 (134-434); RBC 4.68 M/mm3 (3.60-5.2); RDW 15.8 % (11.6-15.6); WHITE BLOOD COUNT 5.8 K/mm3 (4.0-10.0)
[2019-12-02 17:54] LABS: ALBUMIN 3.5 g/dl (3.4-5.0); BILIRUBIN,TOTAL 0.5 mg/dL (0.2-1); BLOOD UREA NITROGEN 10.7 mg/dL (7-18); CALCIUM 8.7 mg/dL (8.5-10.1); CREATININE 0.8 mg/dL (0.55-1.3); TOT PROT 6.8 g/dl (6.4-8.2)
[2019-12-02] MEDS: THIAMINE HCL 100 MG TABLET (FP) PO SCH (22:39)
[2019-12-03] MEDS ORDERED: TRIMETHOBENZAMIDE HCL 200MG/2ML INJ IM PRN (08:14)
[2019-12-03] MEDS ORDERED: TRIMETHOBENZAMIDE HCL 300 MG CAPSULE PO PRN ×2 (08:15→10:05)
[2019-12-03] MEDS ORDERED: METHADONE HCL 10 MG TABLET (FOR DETOX USE ONLY) ONE (08:59)
[2019-12-03] MEDS ORDERED: METHADONE HCL 5 MG TABLET (FOR DETOX USE ONLY) ONE (08:59)
[2019-12-03] MEDS ORDERED: METHADONE DETOX 10 MG/1 ML [20ML VIAL] IM ONE (09:03)
[2019-12-03] MEDS: NICOTINE 21 MG/24 HOURS TOPICAL PATCH TD SCH (09:41)
[2019-12-03] MEDS: PRENATAL VITAMINS W/ FOLIC ACID TABLET (FP) PO SCH (09:41)
[2019-12-03] MEDS: IBUPROFEN 400 MG TABLET (FP) PO PRN (09:52)
[2019-12-03] MEDS: METHOCARBAMOL 500 MG TABLET PO PRN (09:52)
[2019-12-03] MEDS ORDERED: METHADONE (DETOX) 20 MG, METHADONE (DETOX) 5 MG PO ONE (10:00)
--- NOTE | 2019-12-03 10:11 | CONSULT ---
[facility] Psychiatric Consult - Data Date of interview: 12/03/19 Admission source: Self-referred Identifying data: Ms Ayala is a 44 years old single Caucasuan female, unemployed with no source of income, homeless seeking detox treatment for opioid , cocaine, benzodiazepine and cannabis Substance Abuse History: Reports history of heroin, fentanyl, cocaine, klonopin and marijuana use. Refer to addiction counselor's summary for further information Medical History: Unremarkable. Smokes cigarettes 1 ppd Psychiatric History: Reports that she has received treament for anxiety and insomnia in the past. She was prescribed Xanax, Trazadone and Ambien. Denies previous psychiatric hospitalization or suicidal attempt as well as current psychiatric treatment. At present, reports feeling anxious and sleeping poorly Physical/Sexual Abuse/Trauma History: Denies history of abuse as a child or DV relationship as an adult Mental Status Exam - Mental Status Exam Alert and Oriented to: Time, Place, Person Cognitive Function: Fair Patient Appearance: Well Groomed Mood: Anxious Affect: Appropriate Patient Behavior: Cooperative (superficially) Speech Pattern: Clear Voice Loudness: Normal Thought Process: Intact, Goal Oriented Hallucinations: Denies Suicidal Ideation: Denies Homicidal Ideation: Denies Insight/Judgement: Poor Sleep: Poorly Appetite: Poor Muscle strength/Tone: Normal Gait/Station: Normal Psychiatric Findings - Problem List ([place] 1, 2,3) (1) Substance-induced anxiety disorder Current Visit: Yes Status: Acute (2) Substance-induced sleep disorder Current Visit: Yes Status: Acute (3) Opioid dependence with withdrawal Current Visit: Yes Status: Acute (4) Cocaine dependence, uncomplicated Current Visit: Yes Status: Acute (5) Uncomplicated sedative, hypnotic or anxiolytic withdrawal Current Visit: No Status: Acute (6) Cannabis dependence, uncomplicated Current Visit: Yes Status: Acute (7) Nicotine dependence Current Visit: No Status: Chronic Qualifiers: Nicotine product type: cigarettes - Initial Treatment Plan Initial Treatment Plan: 1) Start Vistaril 50 mg po Q 4hrs prn for anxiet and Belsomra 10 mg po HS prn for insomnia. 2) Continue inpatient detoxification
[2019-12-03] MEDS ORDERED: hydrOXYzine PAMOATE 50 MG CAPSULE (FP) PO PRN (10:19)
[2019-12-03] MEDS ORDERED: FLU VACCINE QUAD 60 MCG/0.5 ML (MDV 19-20) IM ONE (12:00)
--- NOTE | 2019-12-03 12:17 | PN ---
S COWS - Scale Resting Pulse: 0= [place] 80 or Below Sweatin=Flushed/Facial Moisture Restless Observation: 1= Difficult to Sit Still Pupil Size: 0= Normal to Room Light Bone or Joint Aches: 2= Severe Diffuse Aches Runny Nose/ Eye Tearin= Runny Nose/Eyes GI Upset > 30mins: 2= Nausea/Diarrhea Tremor Observation of Outstretched Hands: 2= Slight Tremor Visible Yawning Observation: 1= 1-2x During Session Anxiety or Irritability: 2=Irritable/Anxious Goose Flesh Skin: 3=Piloerection COWS Score: 17 BHS Progress Note (SOAP) Subjective: nausea/vomiting/dry heaves sweats restless shakes interrupted sleep agitation body aches Objective: 12/03/19 12:14 Vital Signs Temperature 97.9 F 12/03/19 09:37 Pulse Rate 60 12/03/19 09:37 Respiratory Rate 19 12/03/19 09:37 Blood Pressure 156/82 12/03/19 09:37 O2 Sat by Pulse Oximetry (%) Laboratory Tests 12/02/19 12/02/19 15:15 15:15 WBC 5.8 RBC 4.68 Hgb 15.0 Hct 43.2 MCV 92.3 MCH 32.1 MCHC 34.8 RDW 15.8 H Plt Count 218 D MPV 8.5 Sodium 136 Potassium 4.0 Chloride 104 Carbon Dioxide 27 Anion Gap 5 L BUN 10.7 Creatinine 0.8 Est GFR (CKD-EPI)AfAm 103.19 Est GFR (CKD-EPI)NonAf 89.04 Random Glucose 113 H Calcium 8.7 Total Bilirubin 0.5 AST 116 H ALT 252 H Alkaline Phosphatase 95 Total Protein 6.8 Albumin 3.5 labs noted elevated ast/alt;d/c tylenol and repeat labs aaox3 lying in bed no acute distress Assessment: 12/03/19 12:15 withdrawals Plan: methadone dose only for today was switch from po to IM. tigan IM tigan PO if IM not tolerated roboxin clonidine prn valium 10mg q4hrs x 3 days only
[2019-12-03] MEDS: diazePAM 5 MG TABLET PO PRN (22:00)
[2019-12-03] MEDS: THIAMINE HCL 100 MG TABLET (FP) PO SCH (22:01)
[2019-12-03] MEDS: SUVOREXANT 10 MG TABLET PO PRN (22:02)
[2019-12-04] MEDS ORDERED: METHADONE HCL 10 MG TABLET (FOR DETOX USE ONLY) PO ONE (10:00)
[2019-12-04] MEDS: PRENATAL VITAMINS W/ FOLIC ACID TABLET (FP) PO SCH (10:31)
[2019-12-04] MEDS: NICOTINE 21 MG/24 HOURS TOPICAL PATCH TD SCH (10:31)
[2019-12-04] MEDS: diazePAM 5 MG TABLET PO PRN ×3 (10:34→22:54)
--- NOTE | 2019-12-04 11:31 | PN ---
BHS COWS - Scale Resting Pulse: 0= [place] 80 or Below Sweatin= Chills/Flushing Restless Observation: 1= Difficult to Sit Still Pupil Size: 0= Normal to Room Light Bone or Joint Aches: 2= Severe Diffuse Aches Runny Nose/ Eye Tearin= Nasal Congestion GI Upset > 30mins: 0= None Tremor Observation of Outstretched Hands: 1= Tremor [place], Not Seen Yawning Observation: 2= >3x During Session Anxiety or Irritability: 2=Irritable/Anxious Goose Flesh Skin: 0=Smooth Skin COWS Score: 10 BHS Progress Note (SOAP) Subjective: sweats restless body aches no more vomiting Objective: 12/04/19 11:31 Vital Signs Temperature 97.9 F 12/04/19 09:20 Pulse Rate 80 12/04/19 09:20 Respiratory Rate 18 12/04/19 09:20 Blood Pressure 146/98 12/04/19 09:20 O2 Sat by Pulse Oximetry (%) Laboratory Tests 12/02/19 12/02/19 12/02/19 15:12 15:15 15:15 WBC 5.8 RBC 4.68 Hgb 15.0 Hct 43.2 MCV 92.3 MCH 32.1 MCHC 34.8 RDW 15.8 H Plt Count 218 D MPV 8.5 Sodium 136 Potassium 4.0 Chloride 104 Carbon Dioxide 27 Anion Gap 5 L BUN 10.7 Creatinine 0.8 Est GFR (CKD-EPI)AfAm 103.19 Est GFR (CKD-EPI)NonAf 89.04 Random Glucose 113 H Calcium 8.7 Total Bilirubin 0.5 AST 116 H ALT 252 H Alkaline Phosphatase 95 Total Protein 6.8 Albumin 3.5 POC Urine HCG, Qual Negative RPR Titer 12/02/19 15:15 WBC RBC Hgb Hct MCV MCH MCHC RDW Plt Count MPV Sodium Potassium Chloride Carbon Dioxide Anion Gap BUN Creatinine Est GFR (CKD-EPI)AfAm Est GFR (CKD-EPI)NonAf Random Glucose Calcium Total Bilirubin AST ALT Alkaline Phosphatase Total Protein Albumin POC Urine HCG, Qual RPR Titer Nonreactive aaox3 ambulating no acute distress Assessment: 12/04/19 11:31 withdrawals Plan: continue detox increase fluids
[2019-12-04] MEDS: METHOCARBAMOL 500 MG TABLET PO PRN (18:12)
[2019-12-04] MEDS: THIAMINE HCL 100 MG TABLET (FP) PO SCH (22:51)
[2019-12-04] MEDS: SUVOREXANT 10 MG TABLET PO PRN (22:53)
[2019-12-05] MEDS: diazePAM 5 MG TABLET PO PRN ×2 (06:37→11:06)
[2019-12-05] MEDS: METHOCARBAMOL 500 MG TABLET PO PRN (06:37)
[2019-12-05] MEDS: IBUPROFEN 400 MG TABLET (FP) PO PRN (06:42)
[2019-12-05 08:40] VITALS: TEMP 97.7
[2019-12-05] MEDS ORDERED: METHADONE HCL 5 MG TABLET (FOR DETOX USE ONLY) ONE (09:35)
[2019-12-05] MEDS ORDERED: METHADONE HCL 10 MG TABLET (FOR DETOX USE ONLY) ONE (09:36)
[2019-12-05] MEDS ORDERED: METHADONE (DETOX) 10 MG, METHADONE (DETOX) 5 MG PO ONE (10:00)
[2019-12-05] MEDS: NICOTINE 21 MG/24 HOURS TOPICAL PATCH TD SCH (11:01)
[2019-12-05] MEDS: PRENATAL VITAMINS W/ FOLIC ACID TABLET (FP) PO SCH (11:01)
[2019-12-05 12:30] VITALS: BP 123/72; PULSE 84
--- NOTE | 2019-12-05 13:08 | DS ---
[facility] Detox Discharge Summary Admission Date: 12/02/19 Discharge Date: 12/05/19 - History Present History: Alcohol Dependence, Cannabis Dependence, Cocaine Dependence, Opioid Dependence Pertinent Past History: Patient alert and oriented x3 - Physical Exam Results Vital Signs: Vital Signs Temperature 97.7 F 12/05/19 10:26 Pulse Rate 84 12/05/19 10:26 Respiratory Rate 16 12/05/19 10:26 Blood Pressure 123/72 12/05/19 10:26 O2 Sat by Pulse Oximetry (%) Pertinent Admission Physical Exam Findings: Cor: S1, S2 no murmurs Lungs: Clear to Auscultation Abd: Benign, normal bowel sounds. - Treatment Hospital Course: Detox Protocol Followed, Detoxed Safely, Discharged Condition Good Patient has Accepted a Rehab Referral to: self-referral to [facility] which is close to her home - Medication Discharge Medications: Ambulatory Orders NK [No Known Home Medication] 12/18/17
[2019-12-06] MEDS ORDERED: METHADONE HCL 10 MG TABLET (FOR DETOX USE ONLY) PO ONE (10:00)
[2019-12-07] MEDS ORDERED: METHADONE HCL 5 MG TABLET (FOR DETOX USE ONLY) PO ONE (06:00)
== END 2019-12-05 01:34 | disposition home or self-care (01) | DRG 773 ==
LOC: YASAS 13:21 → Y6N 16:04
PROVIDERS: ADMIT Allergy & Immunology; ATTEND Allergy & Immunology
PROC: HZ2ZZZZ Detoxification Services for Substance Abuse Treatment (ICD-10-PCS; principal; 2019-12-02)
DX: F11.23 Opioid dependence with withdrawal (principal); F13.230 Sedative, hypnotic or anxiolytic dependence with withdrawal, uncomplicated; F14.20 Cocaine dependence, uncomplicated; F12.20 Cannabis dependence, uncomplicated; F17.210 Nicotine dependence, cigarettes, uncomplicated; F19.280 Other psychoactive substance dependence with psychoactive substance-induced anxiety disorder; F19.282 Other psychoactive substance dependence with psychoactive substance-induced sleep disorder; G47.00 Insomnia, unspecified
CPT/HCPCS: 36415; 80053; 81025; 85027; 86593

== ENCOUNTER 2024-07-24 18:47 | Emergency (ER) | payer OTHER ==
[2024-07-24 19:02] VITALS: RESP 18; TEMP 97.9; BMI 21.4
[2024-07-24] MEDS: SODIUM CHLORIDE 0.9% 1000 ML INFUS.BAG IV STA (20:28)
[2024-07-24] MEDS: PIPERACILLIN/TAZOB 4.5 GM 4.5 GM in DEXTROSE 5%-WATER 100 ML IVPB ONE (20:38)
[2024-07-24 20:39] LABS: VENOUS BASE EXCESS 2.8 mmol/L (-2-2); VENOUS O2 SATURATION 71.6 % (70-80); VENOUS PCO2 56.5 mmHg (38-52); VENOUS PH 7.343 (7.310-7.410)
[2024-07-24] MEDS ORDERED: CLINDAMYCIN 600MG PREMIX IVPB 1,200 MG/100 ML BAG IVPB ONE (20:40)
[2024-07-24 20:42] LABS: BASO % 0.3 % (0-2.0); EOS % 0.6 % (0-4.5); HEMATOCRIT 39.4 % (32.4-45.2); HEMOGLOBIN 13.4 GM/dL (10.7-15.3); LYMPH % 15.3 % (8-40); MCH 30.9 pg (25.7-33.7); MCHC 34.1 g/dl (32.0-36.0); MEAN CELL VOLUME 90.6 fl (80-96); MONO % 5.3 % (3.8-10.2); NEUT % 78.5 % (42.8-82.8); PLATELET COUNT 300 10^3/uL (134-434); RBC 4.35 M/mm3 (3.60-5.2); RDW 13.1 % (11.6-15.6); WHITE BLOOD COUNT 11.5 K/mm3 (4.0-10.0)
[2024-07-24] MEDS: CLINDAMYCIN 900 MG PREMIX IVPB 900 MG/50 ML BAG IVPB ONE (20:46)
[2024-07-24 20:54] LABS: INR 1.17 (0.83-1.09); PROTHROMBIN TIME (PATIENT) 13.4 SEC (9.7-13.0)
[2024-07-24 20:57] LABS: ACTIVATED PTT 36.9 SECONDS (25.2-36.5)
[2024-07-24 21:08] LABS: POTASSIUM 3.9 mmol/L (3.5-5.1)
[2024-07-24 21:11] LABS: CALCIUM 9.3 mg/dL (8.5-10.1)
[2024-07-24] MEDS ORDERED: CEFEPIME 2 GM/100 ML BAG IVPB ONE (21:11)
[2024-07-24 21:12] LABS: ALBUMIN 3.9 g/dl (3.4-5.0); BLOOD UREA NITROGEN 11.1 mg/dL (7-18)
[2024-07-24 21:15] LABS: CREATININE 0.7 mg/dL (0.55-1.3)
[2024-07-24 21:16] LABS: BILIRUBIN,TOTAL 0.9 mg/dL (0.2-1); TOT PROT 7.6 g/dl (6.4-8.2)
[2024-07-24] MEDS: CEFEPIME HCL 2 GM VIAL (RESTRICTED TO ID) IVPB ONE (21:22)
[2024-07-24] MEDS: VANCOMYCIN 1,000 MG in DEXTROSE 5%-WATER - 250 ML IVPB ONE (22:28)
[2024-07-24 22:45] VITALS: BP 126/74; PULSE 76
== END 2024-07-24 23:12 | disposition left against medical advice (07) ==
LOC: JER 18:47
DX: L02.512 Cutaneous abscess of left hand (principal); L08.9 Local infection of the skin and subcutaneous tissue, unspecified; I95.9 Hypotension, unspecified; Z20.822 Contact with and (suspected) exposure to COVID-19
CPT/HCPCS: 0241U-QW; 36415; 71045-TC-FY; 73130-TC-LT-FY; 80053; 82803; 82962; 83605; 84484; 84703; 85025; 85610; 85730; 86850; 86900; 86901; 87040; 93005; 93010; 99285-25

== ENCOUNTER 2025-01-25 20:29 | Emergency (ER) | payer OTHER ==
[2025-01-25 20:34] VITALS: BP 149/87; PULSE 71; RESP 18; TEMP 98; BMI 23.1
[2025-01-25] MEDS ORDERED: diphenhydrAMINE HCL 25 MG CAPSULE (FP) PO ONE (20:58)
[2025-01-25] MEDS ORDERED: FAMOTIDINE 20 MG TABLET ONE (20:59)
[2025-01-25] MEDS: diphenhydrAMINE HCL 25 MG CAPSULE (FP) PO ONE (21:01)
[2025-01-25] MEDS: FAMOTIDINE 20 MG TABLET PO ONE (21:01)
== END 2025-01-25 21:16 | disposition home or self-care (01) ==
LOC: JERFT 20:29
DX: L30.9 Dermatitis, unspecified (principal); R21 Rash and other nonspecific skin eruption
CPT/HCPCS: 99283-25